=== PATIENT | female | born 2005 | race Caucasian/White ===

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

== ENCOUNTER 2025-04-06 11:22 | Outpatient (CLI) | payer OTHER, SELFPAY | END 2025-04-06 11:23 | disposition home or self-care (01) | PROVIDERS: PCP Family Medicine; Visit Provider Nurse Practitioner Family | DX: R40.0 Somnolence (principal); R53.83 Other fatigue; Z83.49 Family history of other endocrine, nutritional and metabolic diseases | CPT/HCPCS: 82728; 84443 ==